=== PATIENT | male | born 1940 | race Caucasian/White ===

== ENCOUNTER 2025-07-09 10:03 | Emergency (ER) | payer OTHER, SELFPAY ==
--- NOTE | 2025-07-09 10:44 | ED.MALEGU ---
HPI - Male Genitourinary General Chief complaint: Urogenital-Male Stated complaint: Catheter isn't draining. 3 days Time Seen by Provider: 07/09/25 10:43 History of Present Illness HPI Narrative: Patient here for problems with the suprapubic catheter. Patient just moved here from [place]. June 28. It was working on that day but since then has been urinating there is penis. No drainage from his suprapubic catheter. Patient here with son-in-law. Son-in-law states that in [place] due to his prostate problems and multiple infections or complications with urethral Chambers catheter decision 1 year ago was to do suprapubic catheter. He has been doing well until this past week. Patient is uncertain, poor historian as far as how long they catheter has not been working but at least a few days. He has not established any providers here because he has been here less than 2 weeks. Related Data Previous Rx's ?Medication ?Instructions ?Recorded cefdinir 300 mg capsule 300 mg PO BID #10 caps 07/09/25 Allergies Allergy/AdvReac Type Severity Reaction Status Date / Time milk Allergy Severe Abdominal Verified 07/09/25 10:46 Pain Review of Systems Review of Systems Narrative: GENERAL: Negative chills, fatigue, malaise, fever, sweats. HEENT: Negative sinus pain, ear pain, sore throat RESPIRATORY: Negative dyspnea, cough CARDIOVASCULAR: Negative chest pain, palpitations GASTROINTESTINAL: Negative vomiting, nausea, abdominal pain : Negative dysuria, frequency, hematuria MUSCULOSKELETAL: Negative muscle or bony pain SKIN: Negative rash, skin lesions NEUROLOGIC: Negative weakness, numbness ROS Unobtainable: All systems reviewed & are unremarkable except as noted in HPI and below Patient History Social History Smoking Status: Former smoker Exam Narrative Exam Narrative: GENERAL: in no distress, not toxic not dyspneic HEAD: Normocephalic. EYES: Pupils equal round ENT: Mucous membranes moist. NECK: Trachea midline. CARDIOVASCULAR: Regular rate and rhythm RESPIRATORY: Clear to auscultation. Breath sounds equal bilaterally. No wheezes, rales, or rhonchi. GASTROINTESTINAL: Abdomen soft, nontender. Chambers catheter at suprapubic in place. No bleeding. No discharge. EXTREMITIES: No gross deformities. NEURO: AOx3. Clear speech SKIN: Warm and dry PSYCH: Not anxious, is cooperative Initial Vital Signs Initial Vital Signs: Vital Signs Temperature 97.6 F 07/09/25 10:46 Pulse Rate 70 07/09/25 10:46 Respiratory Rate 12 07/09/25 10:46 Blood Pressure 135/64 07/09/25 10:46 Pulse Oximetry 98 07/09/25 10:46 Oxygen Delivery Method Room Air 07/09/25 10:46 Course Orders Ordered: Discontinued Medications Cefdinir (Cefdinir 300 Mg Capsule) 300 mg PO NOW ONE Stop: 07/09/25 13:40 Last Admin: 07/09/25 13:54 Dose: 300 mg Documented By: Jorge L Vital Signs Vital signs: Vital Signs - 8 hr 07/09/25 10:46 Temperature 97.6 F Pulse Rate 70 Respiratory Rate 12 Blood Pressure 135/64 Pulse Oximetry 98 Oxygen Delivery Method Room Air MDM - Male Genitourinary Lab Data 07/09/25 12:10 07/09/25 12:10 Labs: Lab Results 07/09/25 07/09/25 Range/Units 12:10 13:07 WBC 8.3 (4.5-11.0) X10^3/uL RBC 4.92 (4.5-5.9) X10^6/uL Hgb 14.8 (13.5-17.5) g/dL Hct 44.1 (41-53) % MCV 89.6 (80-100) fL MCH 30.1 (26-34) PG MCHC 33.6 (30-36) % RDW 16.5 H (11.6-14.8) % Plt Count 511 H (150-400) X10^3/uL Neut % (Auto) 76.3 H (50-75) % Lymph % (Auto) 9.1 L (25-40) % [place] % (Auto) 10.2 (3-14) % Eos % (Auto) 3.1 (2-4) % Baso % (Auto) 1.3 (0-2) % Neut # (Auto) 6300 (0675-8662) /uL Lymph # (Auto) 800 L (1126-9980) /uL [place] # (Auto) 800 (0-900) /uL Eos # (Auto) 300 (0-450) /uL Baso # (Auto) 100 (0-100) /uL Sodium 137 (137-145) mmol/L Potassium 4.6 (3.4-5.1) mmol/L Chloride 109 H (98-107) mmol/L Carbon Dioxide 22 (22-32) mmol/L BUN 20 (9-20) mg/dL Creatinine 1.08 (0.66-1.25) mg/dL Estimated GFR > 60 (>60) mL/min BUN/Creatinine Ratio 18.5 (6-22) Glucose 95 (70-99) mg/dL Calcium 8.6 (8.4-10.2) mg/dL Total Bilirubin 0.8 (0.2-1.3) mg/dL AST 33 (17-59) IU/L ALT 24 (<50) IU/L Alkaline Phosphatase 72 (38-126) U/L Total Protein 6.8 (6.3-8.2) g/dL Albumin 3.7 (3.5-5.0) g/dL Globulin 3.1 (1.7-4.1) g/dL Albumin/Globulin Ratio 1.2 (1.0-2.8) Urine Color Yellow Urine Appearance Slightly cloudy Urine pH 7.5 (4.5-8.0) Ur Specific [place] 1.010 (1.000-1.035) Urine Protein Trace H (Negative) Urine Glucose (UA) Negative (Negative) g/dL Urine Ketones Negative (NEGATIVE) Urine Occult Blood 3+ H (Negative) Urine Nitrate Positive H (Negative) Urine Bilirubin Negative (NEGATIVE) Urine Urobilinogen Normal (0.2) E.U./dL Ur Leukocyte Esterase 3+ H (NEGATIVE) Urine RBC >100/hpf H (0-5/HPF) Urine WBC >100/hpf H (0-5/HPF) Ur Squamous Epith Cells None seen (0-5/HPF) Urine Bacteria Moderate (10-30) H (None) Ur Culture Indicated? Specimen cultured Vol Urine Centrifuged 10ml (spun) Imaging Data CT scan - abdomen/pelvis: Radiologist's Impression: [address] [address] [address] Scan Report Signed Patient: Karl Estevez MR#: [id number] : 1940 Acct:[id number] Age/Sex: 85 / M Date of Service: 07/09/25 Loc: ED Accession Number: [id number] Procedure: CT kidney ureter bladder (KUB) Ordering Provider: Karl Dougherty MD PROCEDURE: CT KIDNEY URETER BLADDER (KUB) INDICATIONS: Urinary retention TECHNIQUE: Axial sections were acquired from the lung bases to the pubic symphysis. Coronal and sagittal reformats were performed. For radiation dose reduction, the following was used: automated exposure control, adjustment of mA and/or kV according to patient size. COMPARISON: None. FINDINGS: Image quality: Diagnostic. Lower Chest: No significant findings. URINARY: Right Kidney: Nonobstructing 3 mm inferior pole calculus. No hydronephrosis Right Ureter: No hydroureter. Left Kidney: No stones or hydronephrosis. Left Ureter: No hydroureter. Bladder: Suprapubic catheter in place. Normal wall thickness. No stones. ABDOMEN: Liver: No contour-deforming solid mass. Gallbladder: No radiopaque gallstones or wall thickening. Contracted. Biliary ducts: No biliary dilation. Pancreas: No ductal dilation. Spleen: Size is within normal limits. Adrenal Glands: No adrenal nodules. Stomach and Bowel: Normal colonic caliber, without significant wall thickening. Sigmoid diverticulosis without acute inflammation. Peritoneum: No abnormal intraperitoneal fluid. No free air. Ventral Wall: No hernia. Abdominal Nodes: No enlarged retroperitoneal or mesenteric lymph nodes. Vessels: Aorta and inferior vena cava are normal in size. PELVIS: Pelvic Organs: Unremarkable. Pelvic Nodes: Unremarkable. Miscellaneous: No inguinal hernias are seen. Large bilateral hydroceles. Bones: Multilevel degenerative changes without acute vertebral body compression fracture. IMPRESSION: Suprapubic catheter in place. No bladder calculi visualized. No obstructing stones or hydronephrosis. Nonobstructing 3 mm right inferior pole calculus. Approved by: Amber Johnson M.D.,Ph.D. on 07/09/2025 at 11:16 MDM Narrative Medical decision making narrative: Patient here for problems with the suprapubic catheter. Patient just moved here from [place]. June 28. It was working on that day but since then has been urinating there is penis. No drainage from his suprapubic catheter. Patient here with son-in-law. Son-in-law states that in [place] due to his prostate problems and multiple infections or complications with urethral Chambers catheter decision 1 year ago was to do suprapubic catheter. He has been doing well until this past week. Patient is uncertain, poor historian as far as how long they catheter has not been working but at least a few days. He has not established any providers here because he has been here less than 2 weeks. MDM After history and exam, CBC CMP urinalysis CT KUB bladder scan, urology consult Differential considered: Includes but not limited to urinary retention acute renal injury UTI Chambers catheter failure/dislodgement Medical records reviewed: No recent visit for this complaint Lab Test results independently reviewed as above. Pertinent findings: WBC 8.3 hemoglobin 14.8 sodium 137 potassium 4.6 BUN 20 creatinine 1.08 GFR greater than 60 Imaging studies independently reviewed: CT KUB catheter in place Consultations: 11:30 a.m.. Spoke with urologist, dr panda, who will come here and 30 minutes to replace the catheter 12:51 p.m.. Patient tolerated Chambers catheter changed by Urology very well. Re-evaluations: 1:00 p.m.. No new complaints. Patient tolerated Chambers catheter change. Return precautions reviewed. They desire discharge home. Reviewed with them treatment for UTI as well. Discussion: Appropriate for discharge home. Exam is reassuring. Chambers catheter was changed by urologist. Return precautions reviewed they desire discharge home Diagnosis: Chambers catheter malfunction, acute UTI Discharge Plan Departure Patient Disposition: Home Clinical Impression: Acute UTI Complication, blocked Chambers catheter Qualifiers: Encounter type: initial encounter Qualified Code(s): T83.091A - Other mechanical complication of indwelling urethral catheter, initial encounter Instructions: How to Care for Your Chambers Catheter -- Male, DI for Urinary Tract Infection (UTI) Activity Restrictions/Additional Instructions: Your exam and imaging studies are reassuring. Please call provided urology office today for appointment in a week for re-evaluation. Continue home medications. Return if worse if any questions or concerns. Prescription for antibiotic has been provided for you to treat urine infection. Prescriptions: New cefdinir 300 mg capsule 300 mg PO BID Qty: 10 0RF Referrals: Pro Panda DO [Physician, Urology] Stand Alone Forms: Patient Portal/API
[2025-07-09 10:46] VITALS: BP 135/64; PULSE 70; RESP 12; TEMP 36.4; O2SAT 98; BMI 22.8
--- NOTE | 2025-07-09 10:50 | DI.CT.S_ITS ---
PROCEDURE: CT KIDNEY URETER BLADDER (KUB) INDICATIONS: Urinary retention TECHNIQUE: Axial sections were acquired from the lung bases to the pubic symphysis. Coronal and sagittal reformats were performed. For radiation dose reduction, the following was used: automated exposure control, adjustment of mA and/or kV according to patient size. COMPARISON: None. FINDINGS: Image quality: Diagnostic. Lower Chest: No significant findings. URINARY: Right Kidney: Nonobstructing 3 mm inferior pole calculus. No hydronephrosis Right Ureter: No hydroureter. Left Kidney: No stones or hydronephrosis. Left Ureter: No hydroureter. Bladder: Suprapubic catheter in place. Normal wall thickness. No stones. ABDOMEN: Liver: No contour-deforming solid mass. Gallbladder: No radiopaque gallstones or wall thickening. Contracted. Biliary ducts: No biliary dilation. Pancreas: No ductal dilation. Spleen: Size is within normal limits. Adrenal Glands: No adrenal nodules. Stomach and Bowel: Normal colonic caliber, without significant wall thickening. Sigmoid diverticulosis without acute inflammation. Peritoneum: No abnormal intraperitoneal fluid. No free air. Ventral Wall: No hernia. Abdominal Nodes: No enlarged retroperitoneal or mesenteric lymph nodes. Vessels: Aorta and inferior vena cava are normal in size. PELVIS: Pelvic Organs: Unremarkable. Pelvic Nodes: Unremarkable. Miscellaneous: No inguinal hernias are seen. Large bilateral hydroceles. Bones: Multilevel degenerative changes without acute vertebral body compression fracture. IMPRESSION: Suprapubic catheter in place. No bladder calculi visualized. No obstructing stones or hydronephrosis. Nonobstructing 3 mm right inferior pole calculus. Approved by: Amber Johnson M.D.,Ph.D. on 07/09/2025 at 11:16
[2025-07-09 12:20] LABS: Add Manual Diff / Slide Review NO; Hematocrit 44.1 % (41-53); Hemoglobin 14.8 g/dL (13.5-17.5); Lymphocytes Absolute Auto 800 /uL (1100-4500); Mean Corpuscular HGB Conc 33.6 % (30-36); Mean Corpuscular Hemoglobin 30.1 PG (26-34); Mean Corpuscular Volume 89.6 fL (80-100); Platelet Count 511 X10^3/uL (150-400)
[2025-07-09 12:35] LABS: Alanine Aminotransferase 24 IU/L (<50); Albumin 3.7 g/dL (3.5-5.0); Albumin Globulin Ratio 1.2 (1.0-2.8); Alkaline Phosphatase 72 U/L (38-126); Blood Urea Nitrogen 20 mg/dL (9-20); Calcium 8.6 mg/dL (8.4-10.2); Carbon Dioxide 22 mmol/L (22-32); Chloride 109 mmol/L (98-107); Estimated Glomerular Filt Rate > 60 mL/min (>60); Globulin 3.1 g/dL (1.7-4.1); Glucose 95 mg/dL (70-99); HEMOLYSIS < 15 (0-50); Potassium 4.6 mmol/L (3.4-5.1); Sodium 137 mmol/L (137-145); Total Protein 6.8 g/dL (6.3-8.2)
--- NOTE | 2025-07-09 12:58 | P.CONS_ITS ---
History of Present Illness Consult details Date Patient Seen: 07/09/25 Time Patient Seen: 12:15 Chief complaint: Suprapubic catheter is not draining Reason for consult: Suprapubic catheter exchange Narrative: 85 y/o M brought in to ER by his son-in-law for malfunctioning SPT. 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 However, he continued to suffer from recurrent UTI's and had an SPT placed roughly a year ago. This was last exchanged in late Jun and has not been draining the last few days. He has been leaking urine out through his penis in the interim. His CT Abd/Pel was notable for a distended urinary bladder with his SPT in correct position. Urology was consulted for an SPT exchange. Meds Home Medications and Allergies Allergies Allergy/AdvReac Type Severity Reaction Status Date / Time milk Allergy Severe Abdominal Verified 07/09/25 10:46 Pain Review of Systems Review of Systems Narrative: A complete ROS was completed with all pertinent positives and negatives documented in HPI. All other systems were reviewed and are negative. Exam Vital Signs (past 8 hours): - 07/09/25 10:46 Temperature 97.6 F Pulse Rate 70 Respiratory Rate 12 Blood Pressure 135/64 Pulse Oximetry 98 Oxygen Delivery Method Room Air Oxygen Delivery Method Room Air Narrative Exam Narrative: GEN: Alert and oriented X3. No acute distress. Well-nourished. EYES: PERRLA, EOMI. HENT: Moist mucus membranes, no scleral icterus, normal neck ROM. RESP: Unlabored breathing, equal rise and fall of chest bilaterally, no cyanosis appreciated. CV: No peripheral edema, unremarkable heart rate. ABD: Soft, non-tender, non-distended, no palpable masses. : His existing SPT balloon was deflated and it was easily removed. A new 18Fr beaver catheter was introduced through his SP tract with immediate drainage of 1L of clear yellow urine. 10cc of sterile water was utilized for balloon insufflation. EXT: No edema, clubbing or cyanosis. SKIN: No rashes or lesions. NEURO: No focal neurologic deficits, CN II-XII grossly intact. PSYCH: Cooperative, appropriate mood and affect. Objective Labs 07/09/25 12:10 07/09/25 12:10 Labs: Laboratory Results - last 24 hr 07/09/25 12:10 WBC 8.3 RBC 4.92 Hgb 14.8 Hct 44.1 MCV 89.6 MCH 30.1 MCHC 33.6 RDW 16.5 H Plt Count 511 H Neut % (Auto) 76.3 H Lymph % (Auto) 9.1 L [place] % (Auto) 10.2 Eos % (Auto) 3.1 Baso % (Auto) 1.3 Neut # (Auto) 6300 Lymph # (Auto) 800 L [place] # (Auto) 800 Eos # (Auto) 300 Baso # (Auto) 100 Sodium 137 Potassium 4.6 Chloride 109 H Carbon Dioxide 22 BUN 20 Creatinine 1.08 Estimated GFR > 60 BUN/Creatinine Ratio 18.5 Glucose 95 Calcium 8.6 Total Bilirubin 0.8 AST 33 ALT 24 Alkaline Phosphatase 72 Total Protein 6.8 Albumin 3.7 Globulin 3.1 Albumin/Globulin Ratio 1.2 PFSH Tobacco & Substance Use Smoking Status: Former smoker Assessment & Plan Assessment and plan (1) Complication, blocked Beaver catheter: Qualifiers: Encounter type: initial encounter Qualified Code(s): T83.091A - Other mechanical complication of indwelling urethral catheter, initial encounter Status: Acute Plan: 85 y/o M brought in to ER by his son-in-law for malfunctioning SPT. 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 However, he continued to suffer from recurrent UTI's and had an SPT placed roughly a year ago. This was last exchanged in late Jun and has not been draining the last few days. He has been leaking urine out through his penis in the interim. His CT Abd/Pel was notable for a distended urinary bladder with his SPT in correct position. This was easily exchanged bedside and he will be following up in Urology clinic for an exchange in 4 weeks. Time-Based Coding :: [TOTAL MINUTES] spent with patient and on the chart (including review of chart, obtaining history, exam, reviewing outside data, placing orders, documenting exam and treatment plan, and counseling patient) on [DATE]. PROFEE Charge Codes Inpatient or Observation consultation: [id number]
[2025-07-09 13:22] LABS: Appearance Urine UA Slightly Cloudy; Color Urine UA YELLOW
[2025-07-09 13:23] LABS: Glucose Urine UA NEGATIVE (Negative); Protein Urine UA TRACE (Negative); Specific Gravity Urine UA 1.010 (1.000-1.035); pH Urine UA 7.5 (4.5-8.0)
[2025-07-09 13:24] LABS: Bilirubin Urine UA Negative (NEGATIVE); Ketones Urine UA NEGATIVE (NEGATIVE); Leukocyte Esterase Urine UA 3+ (NEGATIVE); Nitrite Urine UA POSITIVE (Negative); Occult Blood Urine UA 3+ (Negative); Urobilinogen Urine UA Normal E.U./dL (0.2)
[2025-07-09 13:26] LABS: Culture Indicated Urine Specimen Cultured
[2025-07-09 13:38] VITALS: PULSE 62; O2SAT 96
[2025-07-09 13:42] VITALS: BP 120/66; PULSE 59; RESP 18; O2SAT 98
[2025-07-09] MEDS: CEFDINIR 300 MG CAPSULE PO (13:54)
== END 2025-07-09 14:05 | disposition home or self-care (01) ==
PROVIDERS: Emergency Provider Emergency Medicine
DX: T83.098A Other mechanical complication of other urinary catheter, initial encounter (principal); N39.0 Urinary tract infection, site not specified
CPT/HCPCS: 36415; 51702; 74176; 80053; 81001; 85025; 87077; 87086; 87147; 87186; 99283; 99284